=== PATIENT | male | born 1955 | race Asian ===

== ENCOUNTER 2017-12-17 08:34 | Emergency (ER) | payer SELFPAY ==
[~2017-12-17] VITALS: Ht 167.6 cm; Wt 68.2 kg
[2017-12-17] MEDS ORDERED: EPINEPHrine 1:10,000 [1 MG/10 ML] SYRINGE IVP ONE ×2 (08:36)
[2017-12-17] MEDS ORDERED: SODIUM BICARBONATE [ADULT] 8.4% 50 MEQ/50 ML SYRINGE IVP ONE ×2 (08:36)
[2017-12-17] MEDS ORDERED: AMIODARONE HCL 50 MG/ML 3 ML VIAL IVP ONE (08:36)
[2017-12-17 08:45] VITALS: BP 146/96
[2017-12-17] MEDS ORDERED: CHOLESTEROL PO (08:52)
[2017-12-17] MEDS ORDERED: HTN PO (08:52)
== END 2017-12-17 13:30 | disposition expired ==
LOC: EMS 08:35
DX: I46.9 Cardiac arrest, cause unspecified (principal); I21.9 Acute myocardial infarction, unspecified; J96.00 Acute respiratory failure, unspecified whether with hypoxia or hypercapnia; R56.9 Unspecified convulsions; I10 Essential (primary) hypertension; E78.00 Pure hypercholesterolemia, unspecified; F17.210 Nicotine dependence, cigarettes, uncomplicated
CPT/HCPCS: 31500; 92950; 93005; 99291; J0171; J0282; J3490